=== PATIENT | male | born 1985 | race Caucasian/White ===

== ENCOUNTER 2017-11-26 21:07 | Emergency (ER) | payer MEDICAID ==
[~2017-11-26] VITALS: Ht 160 cm; Wt 67.1 kg
[2017-11-26 21:10] VITALS: Ht 160 cm; Wt 67.1 kg
[2017-11-26 22:03] LABS: BASOPHIL % 0.4 % (0-2); PLATELET COUNT 206 x10^3mcL (130-400); RED CELL DISTRIBUTION WIDTH 13.6 % (11.5-14.5)
[2017-11-26 22:22] LABS: CALCIUM 9.4 mg/dL (8.5-10.1); CARBON DIOXIDE 26.3 mmol/L (21-32); CHLORIDE SERUM 102 mmol/L (98-107); CREATININE SERUM 0.8 mg/dL (0.7-1.3); GFR1 > 60 mL/min; GLUCOSE SERUM 105 mg/dL (74-106); POTASSIUM SERUM 3.4 mmol/L (3.5-5.1); SODIUM SERUM 139 mmol/L (136-145)
[2017-11-26 22:25] LABS: ALBUMIN 4.1 g/dL (3.4-5.0); ALKALINE PHOSPHATASE 76 U/L (46-116); ALT/SGPT 29 U/L (16-63); AST/SGOT 15 U/L (15-37); BILIRUBIN TOTAL 0.9 mg/dL (0.20-1.00); TOTAL PROTEIN, SERUM 7.7 g/dL (6.4-8.2)
[2017-11-26 22:52] LABS: AMPHETAMINE QUAL UR POSITIVE (See below)
[2017-11-27 02:50] VITALS: BP 111/88
== END 2017-11-27 02:50 | disposition home or self-care (01) ==
LOC: ED 21:07
PROVIDERS: Emergency Medicine
DX: R07.89 Other chest pain (principal); F15.10 Other stimulant abuse, uncomplicated; M54.6 Pain in thoracic spine
CPT/HCPCS: 83880; J1885

== ENCOUNTER 2017-12-02 09:12 | Emergency (ER) | payer MEDICAID ==
[~2017-12-02] VITALS: Ht 167.6 cm; Wt 65.3 kg
[2017-12-02 09:23] VITALS: Ht 167.6 cm; Wt 65.3 kg
[2017-12-02 10:33] VITALS: BP 121/61
== END 2017-12-02 10:33 | disposition home or self-care (01) ==
LOC: ED 09:12
DX: M75.42 Impingement syndrome of left shoulder (principal); R07.89 Other chest pain; M54.9 Dorsalgia, unspecified
CPT/HCPCS: J1885; Q0092

== ENCOUNTER 2018-12-30 15:39 | Emergency (ER) | payer MEDICAID ==
[~2018-12-30] VITALS: Ht 160 cm; Wt 67.1 kg
[2018-12-30 15:58] VITALS: Ht 160 cm; Wt 67.1 kg
== END 2018-12-30 18:02 | disposition home or self-care (01) ==
LOC: ED 15:39
DX: S63.610A Unspecified sprain of right index finger, initial encounter (principal); M77.9 Enthesopathy, unspecified; W20.8XXA Other cause of strike by thrown, projected or falling object, initial encounter; Y93.89 Activity, other specified; Y92.89 Other specified places as the place of occurrence of the external cause; Y99.8 Other external cause status
CPT/HCPCS: A4570

== ENCOUNTER 2019-06-16 16:04 | Emergency (ER) | payer MEDICAID ==
[~2019-06-16] VITALS: Ht 157.5 cm; Wt 69.4 kg
[2019-06-16 16:33] VITALS: Ht 157.5 cm; Wt 69.4 kg
[2019-06-16 18:24] VITALS: BP 128/88
== END 2019-06-16 18:24 | disposition home or self-care (01) ==
LOC: ED 16:04
DX: S93.601A Unspecified sprain of right foot, initial encounter (principal); F17.210 Nicotine dependence, cigarettes, uncomplicated; X50.1XXA Overexertion from prolonged static or awkward postures, initial encounter; Y93.89 Activity, other specified; Y92.810 Car as the place of occurrence of the external cause; Y99.8 Other external cause status
CPT/HCPCS: 99406; Q0092

== ENCOUNTER 2019-07-28 06:12 | Emergency (ER) | payer MEDICAID ==
[~2019-07-28] VITALS: Ht 170.2 cm; Wt 75.7 kg
[2019-07-28 06:24] VITALS: Ht 170.2 cm; Wt 75.7 kg
[2019-07-28 07:08] VITALS: BP 140/98
== END 2019-07-28 07:08 | disposition home or self-care (01) ==
LOC: ED 06:12
DX: M54.6 Pain in thoracic spine (principal); M25.512 Pain in left shoulder; M25.511 Pain in right shoulder; V49.9XXA Car occupant (driver) (passenger) injured in unspecified traffic accident, initial encounter; Y93.I9 Activity, other involving external motion; Y92.413 State road as the place of occurrence of the external cause; Y99.8 Other external cause status